=== PATIENT | male | born 2005 | race Caucasian/White ===

== ENCOUNTER 2024-06-03 16:29 | Emergency (ER) | payer SELFPAY ==
[~2024-06-03] VITALS: Ht 180.3 cm; Wt 70.0 kg
[2024-06-03 16:38] VITALS: O2SAT 99
[2024-06-03 16:48] VITALS: BP 104/70; PULSE 94; RESP 18; TEMP 98.3; O2SAT 100
== END 2024-06-03 18:05 | disposition left against medical advice (07) ==
LOC: ER 16:29
DX: H57.89 Other specified disorders of eye and adnexa (principal); Z53.21 Procedure and treatment not carried out due to patient leaving prior to being seen by health care provider